=== PATIENT | female | born 1965 ===

== ENCOUNTER 2017-06-22 16:05 | Emergency (ER) | payer OTHER ==
[~2017-06-22 16:05] MED LIST: ALPR-429 PO; BUSP10TA95 PO; CEPH500T7 PO; DICL100G7 TOP; GABA-503 PO; GABA-549 PO; HYDR-385 PO; MELO-205 PO; SERT-184 PO; TRAM-420 PO; TRAZ150T8 PO
--- NOTE | 2017-06-22 16:13 | ER Report ---
History and Physical Time Seen By : 16:09 HPI/ROS CHIEF COMPLAINT: r shoulder injury HISTORY OF PRESENT ILLNESS: PT works in the hosp with enviromental services. Pt was putting her cart in the elevator and the door closed on her r shoulder. + swelling and bruising. Occurred Wednesday night. Pt using ibuprofen 800mg every 4 hours but sill with pain. Pt went to [facility] today and was sent to ed for evaluation due to bruising and continued pain. Pt is able to move the arm but it causes pain at the humeral head. no numbness or tingling. REVIEW OF SYSTEMS: Constitutional: No fever, no chills. Musculoskeletal: + r shoulder pain Skin: + bruising Neurological: No numbess or tingling Allergies: Coded Allergies: sulfamethoxazole (Verified Allergy, Severe, stomach bleeding, 06/22/17) trimethoprim (Verified Allergy, Severe, stomach bleeding, 06/22/17) Sulfa (Sulfonamide Antibiotics) (Verified Allergy, Unknown, 06/22/17) Home Meds Active Scripts Alprazolam (XANAX) 0.5 Mg Tablet, 1 TAB PO TID for Anxiety, #15 TAB Prov:NINO GARCIA MD 02/03/17 Meloxicam (MELOXICAM) 7.5 Mg Tablet, 1 TAB PO BID, #60 TAB 11 Refills Prov:NINO GARCIA MD 01/25/17 Gabapentin (GABAPENTIN) 600 Mg Tablet, 2 TAB PO TID, #180 TAB 11 Refills Prov:NINO GARCIA MD 01/25/17 Diclofenac Sodium (Diclofenac Sodium) 1 % Gel..gram., 2 G TOP 4X DAILY Y for PRN , #1 TUBE 11 Refills Prov:NINO GARCIA MD 01/25/17 Trazodone Hcl (TRAZODONE HCL) 150 Mg Tablet, 1.5 TAB PO QHS, #45 TAB 11 Refills Prov:NINO GARCIA MD 01/25/17 Buspirone Hcl (BUSPIRONE HCL) 10 Mg Tablet, 1 TAB PO TID, #90 TAB 3 Refills Prov:NINO GARCIA MD 12/16/16 Sertraline Hcl (SERTRALINE HCL) 50 Mg Tablet, 2 TAB PO DAILY, #180 TAB 1 Refill Prov:NINO GARCIA MD 12/08/16 Past Medical/Surgical History pmhx: fibromyalgai, OA, buldging discs, anxiety, depression, ocd PShx: , carpal tunnel, tubal ligation Hx Smoking: No Smoking Status: Former Smoker Hx Alcohol Use: Yes Constitutional Vital Sign - Last 24 Hours 06/22/17 16:10 Temp 98.8 Pulse 92 Resp 16 B/P (MAP) 130/88 Pulse Ox 94 O2 Delivery Room Air Physical Exam General Appearance: The patient is alert, has no immediate need for airway protection and no signs of toxicity. Eyes: Pupils equal and round no pallor or injection, EOMI ENT: no pharyngeal erythema or exudates, Mucous membranes are moist Respiratory: There are no retractions, lungs are clear to auscultation. Cardiovascular: Regular rate and rhythm. pulses are equal and symmetrical Neurological: Cranial nerves II-XII grossly intact Skin: Warm and dry, + bruising anterior aspect or r humerus Musculoskeletal: Neck is supple non tender, pt is able to supinate/pronate his r forarem without pain with elbow or wrist on r, Pt does have pain with abduction and internal rotation of right shoulder, non tender at ac joint on r DIFFERENTIAL DIAGNOSIS: After history and physical exam differential diagnosis was considered for contusion, fracture, rotator cuff injury, ligamentous injury Medical Decision Making ED Course/Re-evaluation ED Course will xray. PT is on Meloxicam and is already on topical nsaids so I adviced her not to take the ibuprofen 800mg q4 hours due to she is overdosing on nsaids. 06/22/2017 4:55:11 pm Pt has an appt with orthopedics on Wednesday. will keep pt off of work until seen by orthopedicis due to pt is right handed and can not use right arm. PT given sling for comfort. pt told to move shoulder daily to prevent frozen shoulder. Suspect may require physical therapy if stiffness continues Decision to Disposition Date: Jun 22, 2017 Decision to Disposition Time: 16:56 Depart Departure Latest Vital Signs Vital Signs Date Time Temp Pulse Resp B/P (MAP) Pulse Ox O2 Delivery O2 Flow Rate FiO2 06/22/17 16:10 98.8 92 16 130/88 94 Room Air Impression: Primary Impression: Crush injury shoulder reg Condition: Condition Unchanged Disposition: HOME OR SELF-CARE Referrals: NINO GARCIA MD (PCP) JOSE F SHEEHAN MD 5 Days New Scripts Methocarbamol (ROBAXIN-750) 750 Mg Tablet 750 MG PO Q4-8H Y for MUSCLE SPASMS, #21 TAB Prov: ANOOP GANDHI DO 06/22/17 Hydrocodone Bit/Acetaminophen (HYDROCODON-ACETAMINOPHEN 5-325) 1 Each Tablet 1 EACH PO Q4-6H Y for pain, #20 TAB Prov: ANOOP GANDHI DO 06/22/17 Departure Forms: ER Transition Record, Medications Reconciliation, Off Work/ School Form, School or Work Release?: Work Number of days to be released: 5 Patient Portal Information Patient Instructions: Crush Injury (ED) Additional Instructions: Follow up with orthopedics on Wednesday as scheduled. Do not use any motrin, advil, ibuprofen since you are already on NSAIDs with your regular medications. You may use tylenol 650mg every 4 hours for pain lortab (narcotic) one every 4 hours for moderate to severe pain Robaxin one every 4 hours as needed for musclespasms and stiffiness Problem Qualifiers Primary Impression: Crush injury shoulder reg Encounter type: initial encounter Laterality: right Qualified Codes: S47.1XXA - Crushing injury of right shoulder and upper arm, initial encounter ANOOP GANDHI DO Jun 22, 2017 16:13
--- NOTE | 2017-06-22 16:43 | RADIOLOGY IMAGING REPORT ---
FACILITY: [facility] - [place] PATIENT NAME: Selina Montanez : 1965 MR: [id number] V: [id number] EXAM DATE: ORDERING PHYSICIAN: ANOOP GANDHI TECHNOLOGIST: Location[place] [facility] [place] Patient: Selina Montanez : 1965 Visit/Account:[id number] Date of Sevice: 06/22/2017 SHOULDER MIN 2 VIEWS RIGHT HISTORY: Injury COMPARISON: November 13, 2016 FINDINGS: 2 views of the right shoulder were obtained. There is no evidence of acute fracture or disl ocation. There are no significant degenerative changes. The acromioclavicular joint is normal in ap pearance. IMPRESSION: No acute osseous abnormality Report Dictated By: Carter Lloyd at 06/22/2017 4:38 PM Report E-Signed By: Carter Lloyd at 06/22/2017 4:39 PM WSN:[id number]
[2017-06-22] MEDS ORDERED: METHOCARBAMOL 500 MG TAB PO ONE (16:55)
[2017-06-22 16:58] VITALS: BP 124/99
[2017-06-22] MEDS ORDERED: METH-543 PO (17:01)
[2017-06-22] MEDS ORDERED: LOR5/325 PO (17:01)
== END 2017-06-22 17:03 | disposition home or self-care (01) ==
LOC: ER 16:11
DX: S47.1XXA Crushing injury of right shoulder and upper arm, initial encounter (principal)
CPT/HCPCS: 73030; 99283; A4565